=== PATIENT | female | born 1980 | race Two or more races ===

== ENCOUNTER 2017-01-09 11:22 | Emergency (ER) | payer SELFPAY ==
[~2017-01-09] VITALS: Ht 162.6 cm; Wt 122.5 kg
[2017-01-09 13:46] VITALS: BP 123/69
== END 2017-01-09 13:55 | disposition short-term general hospital (02) ==
LOC: ER 11:22
DX: H16.002 Unspecified corneal ulcer, left eye (principal); M06.9 Rheumatoid arthritis, unspecified; Z98.51 Tubal ligation status; Z90.49 Acquired absence of other specified parts of digestive tract